=== PATIENT | male | born 1965 | race Caucasian/White ===

== ENCOUNTER → 2016-11-15 | Outpatient (CLI) | payer OTHER ==
[~2016-11-15] MED LIST: ALBUTEROL17 GM INH; AMLODIPINE BESYL5 MG PO; FLOMAX0.4 M1 PO; FUROSEMIDE40 MG PO; HYDROCODON-ACE1 EAC5 PO; LASIX; LASIX20 MG PO; LISINOPRIL10 MG PO; OMEPRAZOLE40 M1 PO; PERCOCET 10/31 UDTA1 PO; PERFOROMIS20 MCG/2 M NEB; PULMICORT0.5 MG/21 NEB; SIMVASTATIN10 MG PO; XARELTO10 MG PO
--- NOTE | ~2016-11-15 | CT95 ---
[facility] A Service of [facility] & [facility] RADIOLOGY TEXT RESULTS PATIENT: TERRIE HARRIS LOCATION: [facility] : [birth year] UNIT #: [id number] AGE: [address]: Brandon Phillips MD SEX: M ORDER DR: [id number] [address] [address] [id number] O MR#: [id number] Acc #: [id number] NAME: TERRIE HARRIS : 1965 SEX: M STUDY DATE/TIME: 11/15/2016 12:31 UNIT: [facility] ROOM: STUDY DESCRIPTION: CT Lower Ext Rt Wo Cont Attending Physician: Devin Phillips M.D. Referring Physician: Devin Phillips M.D. Ordering Physician: Devin Phillips M.D. Primary Care Physician: Linda Temple M.D. MEDICAL IMAGING REPORT This report is preliminary unless electronic signature is present. EXAM CT right lower extremity. HISTORY Fell from loading dock 2013. Patient underwent fusion 1 year ago. Patient with persistent pain. COMPARISON CT right lower extremity, 08/01/2015. TECHNIQUE Thin section axial images performed through the right lower extremity from the mid-lower leg through the hindfoot. Sagittal coronal reconstructed images reviewed at a workstation. This CT exam was performed with one or more of the following radiation dose reduction techniques: automatic exposure control, adjustment of mA and/or kV according to patient size, and iterative reconstruction. FINDINGS The patient status post hindfoot fusion procedure with fusion across the ankle and subtalar joint with a long intramedullary nail placed retrograde. There are 2 proximal interlocking screws mid tibia and 3 interlocking pins within the instrumentation at the level of the hindfoot. All 3 pins have been placed from a posterior approach and engage the intramedullary nail. The inferior most pin extends through the cortex of the calcaneus at the calcaneocuboid joint approximately 3 mm and may represent a source of irritation at the calcaneal cuboid joint. There is firm bony fusion across the ankle and subtalar joint. At the level of the mid tibia, there is a moderate amount of periostitis and cortical thickening. Based on the resource specialist radiograph, this may represent the site of a healing tibial shaft fracture. Review of the patient's study in July 2015, suggested some periostitis at this location as well. Correlate [facility] A Service of [facility] RADIOLOGY TEXT RESULTS PATIENT: TERRIE HARRIS LOCATION: [facility] : [birth year] UNIT #: [id number] AGE: [address]: Brandon Phillips MD SEX: M ORDER DR: clinically and with outside radiographs to confirm healing of this mid tibial shaft fracture. There is partial fusion of the distal fibula to the talus. Sagittal plane alignment of the hindfoot appears neutral or anatomic. There is approximately 34 degrees of internal rotation of the talus relative to the true sagittal plane of the tibia and there is approximately 14-17 degrees of internal rotation of the calcaneus relative to the sagittal plane of the tibia. Generalized soft tissue swelling and edema about the foot, particularly along the lateral aspect. Heterotopic ossification is seen along the plantar aspect of the calcaneus at the insertion site of the intramedullary nail. The visualized ankle tendons appear intact. Mild atrophy of the abductor digiti minimi muscle. IMPRESSION 1. Status post hindfoot fusion procedure with firm bony fusion across the ankle and subtalar joint and intact instrumentation. 2. Alignment of the hindfoot appears anatomic in the vertical plane. In the axial plane, there is approximately 34 degrees of internal rotation of the talus relative to the true sagittal plane of the tibia and between 14-17 degrees of internal rotation of the calcaneus, relative to the true sagittal plane of the tibia. 3. Only fully visualized on the resource specialist radiograph, there is a lucency across the mid tibial shaft with adjacent periostitis, suggests a healing tibial shaft fracture. This is felt to have been present on the patient's study in July 2015. Correlate clinically and with lower leg radiographs to confirm healing of this fracture. 4. The inferior most fixation pin sits proud anteriorly at the calcaneocuboid joint at least 3 mm and may represent a source of irritation to the calcaneal cuboid joint. 5. Not mentioned above, all three of the inferior screws sit proud along the posterior cortex of the fusion between about 8 mm up to 14 mm. 6. Moderate amount of soft tissue swelling and edema, particularly along the lateral aspect of the ankle. Mild fatty atrophy abductor digiti mini. Dictated by... Montserrat Maki M.D. THIS IS AN ELECTRONICALLY VERIFIED REPORT Montserrat Maki M.D. at 11/18/2016 1:19 PM PIOTR/robert TD: 11/18/2016 09:05 JOB #: [id number] [facility] A Service of [facility] RADIOLOGY TEXT RESULTS PATIENT: TERRIE HARRIS LOCATION: [facility] : [birth year] UNIT #: [id number] AGE: [address]: Brandon Phillips MD SEX: M ORDER DR: MEDICAL IMAGING REPORT Page 1 of 1
== END | disposition home or self-care (01) ==
LOC: SCT 12:04
DX: Z47.89 Encounter for other orthopedic aftercare (principal); M79.89 Other specified soft tissue disorders; Z98.1 Arthrodesis status
CPT/HCPCS: 73700

== ENCOUNTER → 2017-02-11 | Outpatient (CLI) | payer OTHER ==
--- NOTE | ~2017-02-11 | EKG ---
PATIENT: TERRIE HARRIS UNIT #: [id number] Ventricular Rate: 61 BPM Atrial Rate: 61 BPM P-R Interval: 176 ms QRS Duration: 96 ms Q-T Interval: 416 ms QTC Calculation(Bezet): 418 ms P Five Points: 6 degrees Calculated T Five Points: 35 degrees Diagnosis Line: Normal sinus rhythm Diagnosis Line: Normal ECG Diagnosis Line: When compared with ECG of 24-OCT-2015 14:01, Diagnosis Line: No significant change was found Diagnosis Line: Confirmed by CATHY BENJAMIN MD ([id number]) on Diagnosis Line: 02/11/2017 5:11:06 PM INTERPRETING MD: SOURAV GAMBOA
[2017-02-11 14:44] LABS: CALCIUM SERUM 9.2 mg/dL (8.4-10.2); GLOM FILT RATE Estimated 86.8 mL/min (>60); POTASSIUM 4.2 mmol/L (3.5-5.1)
== END | disposition home or self-care (01) ==
LOC: CAMB 12:09
PROVIDERS: Orthopaedic Surgery
DX: Z01.818 Encounter for other preprocedural examination (principal); M21.171 Varus deformity, not elsewhere classified, right ankle
CPT/HCPCS: 36415; 80048; 93005

== ENCOUNTER 2017-02-25 06:36 | Inpatient (IN) | payer OTHER ==
[~2017-02-25] VITALS: Ht 190.5 cm; Wt 149.5 kg
--- NOTE | ~2017-02-25 | BMI ---
[facility] Nutrition Therapy DATE: 02/26/17 Patient: TERRIE HARRIS Physician: BRYAN Address: [facility] [address] Room/Bed: [address] [place] [address], Zip: [place] [id number] Admit Date: 02/25/17 Date of : [birth year] Height: Weight: HIGH BMI NOTE: DX: 51 Y.O. MALE ADMITTED FOR RIGHT FOREFOOT VARUS ANTHROPOMETRICS: 6'3", WT: 321# (145.9 KG), BMI: 40.1 DIET: REGULAR RECOMMENDATIONS: 1. RECOMMEND TO CHANGE CURRENT DIET ORDER TO CONSISTENT CARBOHYDRATE + HEALTHY HEART TO PROMOTE GRADUAL WEIGHT LOSS TOWARDS HEALTHY BMI (19.0-25.0) OR +/-10%IBW RD WILL F/U PER PROTOCOL Respectfully, ANGELI FONTENOT MS, RD, LD Food and Nutritional Services [facility] cc: client file
--- NOTE | ~2017-02-25 | OR ---
Unit #: [id number] #: [id number] Patient: TERRIE HARRIS [id number] [facility]. [address] [place], [place] [address] [id number] I MR#: [id number] NAME: TERRIE HARRIS. ROOM: 456 Date of Procedure: 02/25/2017 Admission Date: 02/25/2017 Surgeon: Devin Phillips M.D. : 1965 Attending Physician: Devin Phillips M.D. Primary Care Physician: Alvin Temple OPERATIVE REPORT PREOPERATIVE DIAGNOSES 1. Right fixed forefoot varus. 2. Right Charcot ankle, status post tibiotalocalcaneal fusion. POSTOPERATIVE DIAGNOSES 1. Right fixed forefoot varus. 2. Right Charcot ankle, status post tibiotalocalcaneal fusion. PROCEDURE PERFORMED Right talonavicular joint and calcaneocuboid joint fusion (42553). ASSISTANTS MD Shikha and KRYS Zamora. ANESTHESIA Popliteal saphenous block and general. INDICATIONS FOR SURGERY The patient is a 51-year-old male, who underwent right tibiotalocalcaneal fusion a year and a half ago for significant hindfoot varus following a calcaneal fracture. He is now walking on the side of his foot secondary to fixed forefoot varus. He is therefore to undergo correction of this deformity with talonavicular and calcaneocuboid joint fusions. DESCRIPTION OF PROCEDURE The patient was taken to the operating room following popliteal saphenous block. He underwent general anesthetic. The right leg was identified as the correct operative extremity during the time-out procedure. The IV antibiotic protocol was followed. The right leg was prepped and draped in the usual sterile fashion. The leg was exsanguinated and the thigh tourniquet inflated to 300 mmHg. The old anterolateral incision overlying the sinus tarsi was extended distally for a total of 8 cm. Subcutaneous tissue was carefully divided. Dissection proceeded directly down to the calcaneocuboid joint, which was exposed subperiosteally. The power osteotome, curved curettes, and rongeurs were utilized to remove the articular cartilage from both sides of the calcaneocuboid joint. The underlying subchondral bone was feathered with the power osteotome. The old dorsal medial incision overlying the ankle and medial midfoot was opened and extended distally for an additional 4 cm for a total distance Unit #: [id number] #: [id number] Patient: TERRIE HARRIS of 8 cm. Subcutaneous tissue was carefully divided. Dissection proceeded directly down to the talonavicular joint which was exposed subperiosteally. The power osteotome, curved curettes, and rongeurs were utilized to remove the articular cartilage from both sides of the talonavicular joint. The underlying subchondral bone was feathered with the power osteotome. A 1.5 mL of [employer] augment platelet derived growth factor calcium phosphate granules were placed into the talonavicular joint and calcaneocuboid joint in divided portions. Additional allograft cancellous bone chips were also packed into each of the joints. The foot was then held in a corrected position and the talonavicular joint was fused with an OrthoHelix 5.5 mm diameter cannulated screw placed from distal to proximal. The calcaneocuboid joint was fixated with a 5.5 mm diameter OrthoHelix screw placed from distal to proximal. Excellent fixation was achieved. Intraoperative C-arm fluoroscopy documented satisfactory position and the forefoot was corrected out of varus into neutral. The tourniquet was released with a total tourniquet time of 79 minutes. The deep tissues were closed with 2-0 Vicryl [id number] sutures. Subcutaneous tissue was closed with 3-0 Vicryl. Skin was closed with 3-0 nylon horizontal mattress sutures. Xeroform gauze, dressing, sponges, cast padding, posterior fiberglass splint, and Glen wraps were applied. The patient was then transported to the recovery room in stable condition. ESTIMATED BLOOD LOSS Minimal. COMPLICATIONS None. SPECIMENS None. TOURNIQUET TIME 79 minutes. Dictated byGretel Cheng/channing TD: 02/25/2017 13:17 JOB #: [id number] OPERATIVE REPORT Page 1 of 1 X Brandon Phillips MD X PROCEDURE OPERATIVE NOTE
--- NOTE | ~2017-02-25 | HP ---
Unit #: [id number] #: [id number] Patient: TERRIE HARRIS [id number] [address] [address] [id number] O MR#: [id number] NAME: TERRIE HARRIS. ROOM: Age: Sex: M Admission Date: 02/25/2017 : 1965 Attending Physician: Devin Phillips M.D. Primary Care Physician: Alvin Temple HISTORY AND PHYSICAL DATE OF ANTICIPATED ADMISSION/PROCEDURE February 25, 2017 CHIEF COMPLAINT Right foot varus deformity. HISTORY OF PRESENT ILLNESS The patient is a 51-year-old male who has undergone previous right tibiotalocalcaneal fusion with an intramedullary nail for treatment of severe right tibiotalar joint varus secondary to peripheral neuropathy and an on-the-job work injury a year and a half ago. The patient has gone onto to fuse his ankle and subtalar joint but now residual forefoot varus. He walks on the side of his foot. He is therefore to undergo fusion of the talonavicular and calcaneocuboid joints in an attempt to give him a plantigrade foot. His CT scan documents that the ankle joint and tibiotalar joint are fused appropriately and that he has medial subluxation of the navicular around the talar head. Both ankle and subtalar joint are fused in neutral to slight valgus. He has not responded to bracing with a double upright brace or with a lateral heel wedge. His forefoot is very stiff. Therefore, a tendon transfer will not achieve the desired result necessitating extension of the fusion to the Chopart joint. PAST MEDICAL HISTORY 1. Insulin-dependent diabetes. 2. Arthritis. 3. Depression. 4. Hypertension. 5. Sleep apnea. 6. Obesity. 7. Peripheral neuropathy. PAST SURGICAL HISTORY 1. Right tibiotalocalcaneal fusion. 2. Knee surgery. 3. Cholecystectomy. HOME MEDICATIONS 1. Insulin. 2. Dulera. ALLERGIES Codeine, penicillin. Unit #: [id number] #: [id number] Patient: TERRIE HARRIS SOCIAL HISTORY The patient is a 60 pack-year smoker. He drinks alcohol socially. FAMILY HISTORY Diabetes and arthritis. REVIEW OF SYSTEMS Otherwise unremarkable. PHYSICAL EXAMINATION VITAL SIGNS: Height 6 feet 3, weight 320 pounds. GENERAL: This is an obese, large male in no acute distress. HEENT: Pharynx is clear. NECK: Supple without masses. HEART: Regular sinus rhythm without murmurs or gallops. LUNGS: Clear. ABDOMEN: Soft and nontender without masses. EXTREMITIES: Evaluation of the right foot shows 10 degrees of forefoot varus. He walks on the lateral border of his foot, but his heel appears to be in neutral position. Pulses are intact. Sensation is decreased to light touch. Motor exam is grossly normal. DIAGNOSTIC STUDIES IMAGING: Standing x-rays of the right ankle show an intact tibiotalocalcaneal fusion with an intramedullary nail. ADMITTING DIAGNOSIS 1. Right fixed forefoot varus measuring 10 degrees. 2. Stable right tibiotalocalcaneal fusion. PLAN The patient is admitted for fusion of the talonavicular and calcaneocuboid joints. This procedure was described in detail along with the risks of bleeding, infection, nerve damage, need for further surgery in the future, prolonged recovery time, deep venous thrombosis, pulmonary embolism, anesthetic complications, nonunion, and malunion. He understands the above risks and agrees to proceed. Dictated by Gretel Weldon/david TD: 02/24/2017 21:49 JOB #: [id number] HISTORY AND PHYSICAL Page 1 of 1 X Brandon Phillips MD HISTORY AND PHYSICAL
--- NOTE | ~2017-02-25 | DS ---
Unit #: [id number] #: [id number] Patient: TERRIE HARRIS [id number] [facility]. [address] [place], [place] [address] [id number] I MR#: [id number] NAME: TERRIE HARRIS. ROOM: 456 Age: 51 Sex: M Admission Date: 02/25/2017 : 1965 Discharge Date: 02/27/2017 Attending Physician: Devin Phillips M.D. Primary Care Physician: Alvin Temple DISCHARGE SUMMARY CHIEF COMPLAINT Right foot gross deformity. HISTORY OF PRESENT ILLNESS This 51-year-old male with neuropathy and previous Charcot foot reconstruction with tibiotalocalcaneal fusion, now have ongoing foot deformity due to forefoot varus. The patient is, therefore, to undergo fusion of his stiff talonavicular and calcaneal cuboid joints. He has failed conservative care to include bracing and shoe modification. HOSPITAL COURSE The patient was taken to the operating room on the date of admission where he underwent fusion of the right talonavicular joint and calcaneocuboid joint. There were no operative complications. He had a stable postoperative course. He was seen by physical therapy on a daily basis and instructed on how to remain nonweightbearing on his operative side. He remained afebrile with stable vital signs. He is ready for discharge on postoperative #2. FINAL DIAGNOSES Fixed right forefoot varus DISPOSITION AND RECOMMENDATIONS 1. The patient is discharged home. 2. Keep the dressing clean, dry and intact, to continue ice and elevation. 3. Followup in my office in 10-14 days for dressing change, suture removal, application of a cast. DISCHARGE MEDICATIONS Remain the same as his home medications with the addition of Xarelto 10 mg p.o. daily for 12 days and Cecil 10/325 1 or 2 p.o. q.4-6 hours p.r.n. pain, dispense 50. Dictated by... Gretel Weldon/elise TD: 02/28/2017 11:25 JOB #: [id number] Unit #: [id number] #: [id number] Patient: TERRIE HARRIS DISCHARGE SUMMARY Page 1 of 1 X Brandon Phillips MD DISCHARGE SUMMARY
[2017-02-27] MEDS ORDERED: XARELTO10 MG PO (10:54)
== END 2017-02-27 18:18 | disposition home or self-care (01) | DRG 504 ==
LOC: CSUR 06:36 → C4B 12:15 → CSUR 14:11 → C4B 14:11
PROVIDERS: Orthopaedic Surgery
PROC: 0SGH0JZ Fusion of Right Tarsal Joint with Synthetic Substitute, Open Approach (ICD-10-PCS; principal; 2017-02-25 09:30)
PROC: 0SGH04Z Fusion of Right Tarsal Joint with Internal Fixation Device, Open Approach (ICD-10-PCS; 2017-02-25 09:30)
DX: M21.171 Varus deformity, not elsewhere classified, right ankle (principal); A52.16 Charcot's arthropathy (tabetic); G62.9 Polyneuropathy, unspecified; Z68.41 Body mass index [BMI] 40.0-44.9, adult; Z88.5 Allergy status to narcotic agent; Z88.0 Allergy status to penicillin; N40.0 Benign prostatic hyperplasia without lower urinary tract symptoms; I10 Essential (primary) hypertension; E78.5 Hyperlipidemia, unspecified; J44.9 Chronic obstructive pulmonary disease, unspecified; Z90.49 Acquired absence of other specified parts of digestive tract; E66.9 Obesity, unspecified; Z83.3 Family history of diabetes mellitus; Z82.61 Family history of arthritis; Z98.1 Arthrodesis status; M19.071 Primary osteoarthritis, right ankle and foot
CPT/HCPCS: 94640; 94760; 97116; 97161; 97530; C1713; G8978-GP; G8979-GP; G8980-GP; J2250; J2270; J2405; J2765; J3010; J3370